=== PATIENT | female | born 1985 | race Caucasian/White ===

== ENCOUNTER 2019-04-15 21:32 | Inpatient (IN) | payer MEDICAID, OTHER ==
[~2019-04-15] VITALS: Ht 152.4 cm; Wt 77.1 kg
[2019-04-15] MEDS ORDERED: DEXT 5%/LR + PITOCIN 20UNITS/L 1,000 ML IV SCH (22:07)
[2019-04-15] MEDS ORDERED: NALOXONE HCL 0.4 MG/ML 1ML VIAL IM PRN (22:15)
[2019-04-15] MEDS ORDERED: BUTORPHANOL TARTRATE 2 MG/ML VIAL IV PRN (22:15)
[2019-04-15] MEDS ORDERED: CARBOPROST TROMETHAMINE 250 MCG/ML AMPUL IM PRN (22:15)
[2019-04-15] MEDS ORDERED: METHYLERGONOVINE MALEATE 0.2 MG/ML IM PRN (22:15)
[2019-04-15] MEDS ORDERED: MISOPROSTOL 200MCG TABLET VG SCH (22:15)
[2019-04-15] MEDS: LACTATED RINGERS 1,000 ML IV SCH ×2 (23:15→23:21)
[2019-04-15] MEDS: TERBUTALINE SULFATE 1MG/ML VIAL SUBCUT PRN ×2 (23:18→23:54)
[2019-04-15 23:22] LABS: CLARITY URINE CLEAR (CLEAR); COLOR URINE YELLOW (YELLOW); KETONES URINE NEGATIVE (NEGATIVE); LEUKOCYTE ESTERASE URINE NEGATIVE (NEGATIVE); NITRITE URINE NEGATIVE (NEGATIVE); OCCULT BLOOD URINE TRACE (NEGATIVE); PH URINE 6.5 (4.5-8.0); PROTEIN URINE NEGATIVE (NEGATIVE); SPECIFIC GRAVITY URINE 1.004 (1.005-1.030); UROBILINOGEN URINE 0.2 E.U./dL (0.2-1.0)
[2019-04-15 23:23] LABS: BASOPHILS % 0.8 % (0.0-2.0); EOSINOPHILS % 1.6 % (0.0-5.0); HEMATOCRIT. 37.9 % (36.0-48.0); HEMOGLOBIN. 12.9 g/dL (12.0-16.0); LYMPHOCYTES % 22.4 % (20.0-50.0); MEAN CORPUSCULAR HEMOGLOBIN 30.1 pg (28.0-32.0); MEAN CORPUSCULAR VOLUME 88.6 fL (81.0-99.0); MONOCYTES % 5.2 % (2.0-8.0); RED BLOOD CELL COUNT 4.28 mill/uL (4.2-5.4); RED CELL DISTRIBUTION WIDTH 14.4 % (11.6-14.6)
[2019-04-15 23:32] LABS: INR 0.9; PROTHROMBIN TIME 9.1 sec (9.6-11.0)
[2019-04-15] MEDS ORDERED: FENTANYL CITRATE/PF 50MCG/ML 2ML VIAL ONE (23:32)
[2019-04-15] MEDS ORDERED: MORPHINE SULFATE/PF 1MG/ML 10ML AMP ONE (23:33)
[2019-04-15] MEDS ORDERED: GLYCOPYRROLATE 0.2 MG/ML 2ML VIAL ONE (23:33)
[2019-04-15] MEDS ORDERED: EPHEDRINE SULFATE 50MG/ML VIAL ONE (23:33)
[2019-04-15] MEDS ORDERED: ONDANSETRON HCL 4MG/2ML INJ ONE (23:33)
[2019-04-15] MEDS ORDERED: CEFAZOLIN SODIUM 1000MG/VIAL ONE (23:33)
[2019-04-15] MEDS ORDERED: OXYTOCIN 10 UNITS/ML 1ML ONE (23:33)
[2019-04-15] MEDS ORDERED: METOCLOPRAMIDE HCL 10MG/2ML VIAL ONE (23:33)
[2019-04-15] MEDS ORDERED: CITRIC ACID/SODIUM CITRATE SOLN 30ML UDC PO NR (23:45)
[2019-04-15 23:47] LABS: MEAN PLATELET VOLUME 11.1 fl (7.4-10.4); PLATELET 229 x1000/uL (130-400)
[2019-04-16 00:06] LABS: *AMPHETAMINES SCREEN URINE NEGATIVE (NEGATIVE); *BARBITURATES SCREEN URINE NEGATIVE (NEGATIVE); *BENZODIAZEPINES SCREEN URINE NEGATIVE (NEGATIVE); *COCAINE SCREEN URINE NEGATIVE (NEGATIVE); CANNABINOID URINE SCREEN NEGATIVE (NEGATIVE); METHADONE URINE SCREEN NEGATIVE (NEGATIVE); OPIATES URINE SCREEN NEGATIVE (NEGATIVE)
[2019-04-16 00:08] LABS: PHENCYCLIDINE URINE SCREEN NEGATIVE (NEGATIVE)
[2019-04-16 00:45] LABS: CHLORIDE 108 mEq/L (98-107)
[2019-04-16] MEDS ORDERED: ESMOLOL HCL 10MG/ML 10ML VIAL IV ONE (00:45)
[2019-04-16] MEDS ORDERED: KETOROLAC 60MG/2ML VIAL IM ONE (01:06)
[2019-04-16] MEDS ORDERED: DIPHENHYDRAMINE 50MG/ML VIAL ONE (01:06)
[2019-04-16] MEDS ORDERED: OXYTOCIN 10 UNITS/ML 1ML ONE (01:10)
[2019-04-16 01:12] LABS: HEPATITIS B SURFACE ANTIGEN NEGATIVE
[2019-04-16] MEDS ORDERED: DEXT 5%/LR + PITOCIN 20UNITS/L 1,000 ML IV SCH (01:48)
[2019-04-16] MEDS ORDERED: NALOXONE HCL 0.4 MG/ML 1ML VIAL IV PRN (02:00)
[2019-04-16] MEDS ORDERED: DIPHENHYDRAMINE 50MG/ML VIAL IV PRN (02:00)
[2019-04-16] MEDS ORDERED: BUTORPHANOL TARTRATE 2 MG/ML VIAL IV PRN (02:00)
[2019-04-16] MEDS ORDERED: RHO(D) IMMUNE GLOBULIN 300 MCG/SYR IM PRN (02:00)
[2019-04-16] MEDS ORDERED: IBUPROFEN 400MG TABLET PO PRN (02:00)
[2019-04-16] MEDS ORDERED: KETOROLAC 30MG/ML VIAL IV SCH ×2 (02:00→06:00)
[2019-04-16] MEDS ORDERED: CEFAZOLIN SODIUM 1000MG/VIAL IV SCH (06:00)
[2019-04-16] MEDS ORDERED: CEFAZOLIN 1000MG PREMIX 50 ML IV SCH (06:00)
[2019-04-16 08:00] VITALS: BP 119/56
[2019-04-16 13:30] VITALS: BP 114/53
[2019-04-16] MEDS: IBUPROFEN 800MG TABLET PO PRN (20:30)
[2019-04-16 22:00] VITALS: BP 112/62
[2019-04-17] MEDS ORDERED: BUTORPHANOL TARTRATE 2 MG/ML VIAL IV PRN (02:30)
[2019-04-17] MEDS: IBUPROFEN 800MG TABLET PO PRN ×3 (05:38→16:50)
[2019-04-17 07:09] LABS: BASOPHILS % 0.4 % (0.0-2.0); EOSINOPHILS % 1.9 % (0.0-5.0); HEMATOCRIT. 32.1 % (36.0-48.0); HEMOGLOBIN. 11.1 g/dL (12.0-16.0); LYMPHOCYTES % 15.1 % (20.0-50.0); MEAN CORPUSCULAR HEMOGLOBIN 31.1 pg (28.0-32.0); MEAN CORPUSCULAR VOLUME 89.6 fL (81.0-99.0); MEAN PLATELET VOLUME 9.8 fl (7.4-10.4); MONOCYTES % 7.2 % (2.0-8.0); NEUTROPHILS % 75.4 % (40.0-76.0); PLATELET 179 x1000/uL (130-400); RED BLOOD CELL COUNT 3.58 mill/uL (4.2-5.4); RED CELL DISTRIBUTION WIDTH 14.5 % (11.6-14.6)
[2019-04-17 08:00] VITALS: BP 103/65
[2019-04-17] MEDS: BISACODYL 10MG SUPP PR PRN (12:04)
[2019-04-17 16:00] VITALS: BP 112/65
[2019-04-17 20:00] VITALS: BP 112/75
[2019-04-18] VITALS: BP 127/79
[2019-04-18] MEDS: IBUPROFEN 800MG TABLET PO PRN ×3 (00:07→20:46)
[2019-04-18] MEDS ORDERED: KETOROLAC 60MG/2ML VIAL IM ONE (02:30)
[2019-04-18] MEDS: HYDROCODONE/ACETAMINOPHEN 5/325MG TABLET PO PRN ×2 (02:38→17:34)
[2019-04-18 04:00] VITALS: BP 112/70
[2019-04-18 08:00] VITALS: BP 119/72
[2019-04-18 16:00] VITALS: BP 120/84
[2019-04-18 20:00] VITALS: BP 114/78
[2019-04-19] VITALS: BP 100/63
[2019-04-19] MEDS: HYDROCODONE/ACETAMINOPHEN 5/325MG TABLET PO PRN (00:22)
[2019-04-19 04:00] VITALS: BP 112/77
[2019-04-19] MEDS: IBUPROFEN 800MG TABLET PO PRN (06:28)
[2019-04-19] MEDS: BISACODYL 10MG SUPP PR PRN (06:58)
[2019-04-19] MEDS ORDERED: IBUP-2030 PO (08:08)
[2019-04-19] MEDS ORDERED: HYDR-4001 PO (08:08)
== END 2019-04-19 14:00 | disposition home or self-care (01) | DRG 540 ==
LOC: OBSVTOIN 21:32 → 8 EST LDRP 21:32 → 8EST 04-17 14:56
PROVIDERS: ADMIT Obstetrics & Gynecology; ATTEND Obstetrics & Gynecology
PROC: 10D00Z1 Extraction of Products of Conception, Low, Open Approach (ICD-10-PCS; principal; 2019-04-16)
PROC: 0UB70ZZ Excision of Bilateral Fallopian Tubes, Open Approach (ICD-10-PCS; 2019-04-16)
DX: O99.12 Other diseases of the blood and blood-forming organs and certain disorders involving the immune mechanism complicating childbirth (principal); D68.62 Lupus anticoagulant syndrome; L93.0 Discoid lupus erythematosus; O99.824 Streptococcus B carrier state complicating childbirth; O34.211 Maternal care for low transverse scar from previous cesarean delivery; Z37.0 Single live birth; Z3A.39 39 weeks gestation of pregnancy; Z82.49 Family history of ischemic heart disease and other diseases of the circulatory system
CPT/HCPCS: 36415; 80053; 80305; 81003; 85025; 86592; 86703; 86762; 86850; 86900; 86920; 87340; 88302; 88307; 99281; J0690; J1200; J1885; J2274; J2405; J2590; J2765; J3010; J3105; J3490